=== PATIENT | female | born 1985 | race Caucasian/White ===

== ENCOUNTER 2019-02-26 02:44 | Observation (INO) | payer OTHER ==
[~2019-02-26] VITALS: Ht 165.1 cm; Wt 118.8 kg
[2019-02-26 02:35] VITALS: BP 104/56
[2019-02-26] MEDS ORDERED: MORPHINE SULFATE 4 MG/ML VIAL. IV PRN ×2 (03:00→09:45)
[2019-02-26] MEDS ORDERED: KETOROLAC 30 MG/ML VIAL. IM ONE (09:00)
[2019-02-26 09:02] VITALS: BP 118/77
[2019-02-26] MEDS ORDERED: FAMO40TA57 PO (09:28)
[2019-02-26] MEDS ORDERED: ESCITALOPRAM OX10 MG PO (09:28)
[2019-02-26] MEDS: IV RINGERS,LACTATED 1000ML 1,000 ML IV SCH ×4 (09:40→22:29)
[2019-02-26] MEDS ORDERED: LIDOCAINE 1% PF 2 ML VIAL. ID PRN (09:45)
[2019-02-26] MEDS ORDERED: HYDROmorphone 2 MG/ML VIAL IV PRN (09:45)
[2019-02-26] MEDS ORDERED: PROCHLORPERAZINE 10 MG/2 ML VIAL. IV PRN ×3 (09:45→20:30)
[2019-02-26] MEDS ORDERED: MORPHINE SULFATE 2 MG/ML VIAL. IV PRN ×2 (09:45→20:30)
[2019-02-26] MEDS ORDERED: fentaNYL PF VIAL 100 MCG/2 ML VIAL IV PRN ×2 (09:45)
[2019-02-26] MEDS ORDERED: IV RINGERS,LACTATED 1000ML 1,000 ML IV SCH (10:00)
--- NOTE | 2019-02-26 10:33 | NUR ---
new bag already hanging so no need for this bag at this time
--- NOTE | 2019-02-26 10:33 | PDOC2 ---
CONSULT Date of Consult Date of Consult DATE: 02/26/19 TIME: 10:29 Reason for Consult Reason for Consult: ovarian cyst Referring Physician Referring Physician: Dr. Gonzales Identification/Chief Complaint Chief Complaint abd pain Source Source: Chart review, Patient History of Present Illness Reason for Visit: 33 y/o presented to [place] ED with c/o abd pain for past 2 days that continued to worsen. She was found to have Right complex ovarian cyst. She was then transferred to [facility]. The pelvic sono was reviewed with patient. Past Medical History Cardiovascular: No pertinent hx Pulmonary: No pertinent hx GI: No pertinent hx Heme/Onc: No pertinent hx Hepatobiliary: No pertinent hx Infectious disease: No pertinent hx Past Surgical History Past Surgical History: Cholecystectomy, Other (Gastric bypass and ovarian cystectomy) Current Medications Current Medications Current Medications Ringer's Solution 1,000 ml @ 150 mls/hr Q6H40M IV ; Start 02/26/19 at 03:00 Morphine Sulfate (Morphine Sulfate) 6 mg PRN Q2HR PRN IV PAIN; Start 02/26/19 at 03:00; Stop 02/26/19 at 09:50; Status DC Ketorolac Tromethamine (Toradol 30mg Vial) 30 mg 1X ONCE IM ; Start 02/26/19 at 09:00; Stop 02/26/19 at 09:01; Status DC Fentanyl Citrate (Fentanyl 2ml Vial) 25 mcg PRN Q5MIN PRN IV MILD PAIN 1-3; Start 02/26/19 at 09:45; Stop 02/26/19 at 19:00 Fentanyl Citrate (Fentanyl 2ml Vial) 50 mcg PRN Q5MIN PRN IV MODERATE TO SEVERE PAIN; Start 02/26/19 at 09:45; Stop 02/26/19 at 19:00 Morphine Sulfate (Morphine Sulfate) 1 mg PRN Q10MIN PRN IV SEVERE PAIN 7-10; Start 02/26/19 at 09:45; Stop 02/26/19 at 19:00 Ringer's Solution 1,000 ml @ 30 mls/hr Q24H IV ; Start 02/26/19 at 10:00; Stop 02/26/19 at 19:00 Lidocaine HCl (Xylocaine-Mpf 1% 2ml Vial) 2 ml PRN 1X PRN ID PRIOR TO IV START; Start 02/26/19 at 09:45; Stop 02/26/19 at 19:00 Hydromorphone HCl (Dilaudid) 0.5 mg PRN Q10MIN PRN IV SEV PAIN, Second choice; Start 02/26/19 at 09:45; Stop 02/26/19 at 19:00 Prochlorperazine Edisylate (Compazine) 5 mg PACU PRN PRN IV NAUSEA, MRX1; Start 02/26/19 at 09:45; Stop 02/26/19 at 19:00 Morphine Sulfate (Morphine Sulfate) 4 mg PRN Q4HRS PRN IV PAIN; Start 02/26/19 at 09:45 Active Scripts Active Reported Pepcid (Famotidine) 40 Mg Tablet 40 Mg PO BID Escitalopram Oxalate 10 Mg Tablet 1 Tab PO DAILY Allergies Allergies: Coded Allergies: Sulfa (Sulfonamide Antibiotics) (Verified Allergy, Intermediate, 02/26/19) ibuprofen (Verified Allergy, Mild, 02/26/19) yellow dye (Verified Allergy, Mild, 02/26/19) ROS General: YES: Fatigue PSYCHOLOGICAL ROS: YES: Anxiety Eyes: No Blurry vision, No Decreased vision, No Double vision, No Dry eyes, No Excessive tearing, No Eye Pain, No Itchy Eyes, No Loss of vision, No Ph otophobia, No Scotomata, No Uses contacts, No Uses glasses, No Other HEENT: No: Heacaches, Visual Changes, Hearing change, Nasal congestion, Nasal discharge, Oral lesions, Sinus pain, Sore Throat, Epistaxis, Sneezing, Snoring, Tinnitus, Vertigo, Vocal changes, Other ALLERGY AND IMMUNOLOGY: No: Hives, Insect Bite Sensitivity, Itchy/Watery Eyes, Nasal Congestion, Post Nasal Drip, Seasonal Allergies, Other Hematological and Lymphatic: No: Bleeding Problems, Blood Clots, Blood Transfusions, Brusing, Night Sweats, Pallor, Swollen Lymph Nodes, Other ENDOCRINE: No: Breast Changes, Galactorrhea, Hair Pattern Changes, Hot Flashes, Malaise/lethargy, Mood Swings, Palpitations, Polydipsia/polyuria, Skin Changes, Temperature Intolerance, Unexpected Weight Changes, Other Breast: No New/Changing Breast Lumps, No Nipple changes, No Nipple discharge, No Other Respiratory: No: Cough, Hemoptysis, Orthopnea, Pleuritic Pain, Shortness of breath, SOB with excertion, Sputum Changes, Stridor, Tachypnea, Wheezing, Other Cardiovascular: No Chest Pain, No Palpitations, No Orthopnea, No Paroxysmal Noc. Dyspnea, No Edema, No Lt Headedness, No Other Gastrointestinal: Yes Abdominal Pain Genitourinary: No Dysuria, No Frequency, No Incontinence, No Hematuria, No Retention, No Discharge, No Urgency, No Pain, No Flank Pain, No Other, No , No , No , No , No , No , No Musculoskeletal: No Gait Disturbance, No Joint Pain, No Joint Stiffness, No Joint Swelling, No Muscle Pain, No Muscular Weakness, No Pain In:, No Swelling In:, No Other Physical Exam General: Alert, Oriented X3, Cooperative HEENT: Atraumatic Lungs: Clear to auscultation Heart: Regular rate Abdomen: Normal bowel sounds, Soft, Other (RLQ tenderness to palpation) Psych/Mental Status: Mental status NL Vitals VITALS Vital Signs Date Time Temp Pulse Resp B/P (MAP) Pulse Ox O2 Delivery O2 Flow Rate FiO2 02/26/19 09:02 97.7 64 14 118/77 (91) 99 Room Air 97.7 Assessment/Plan Assessment/Plan A: ROV complex cyst P: Plan for LPSC RSO today. MAXI BRAR Jr, MD Feb 26, 2019 10:33
[2019-02-26] MEDS ORDERED: KETOROLAC 30 MG/ML VIAL. IVP ONE (10:45)
--- NOTE | 2019-02-26 10:49 | HP ---
ADMIT DATE: 02/26/2019 HISTORY OF PRESENT ILLNESS: The patient is a 33-year-old female patient, who presented to the Emergency Room of [facility] with severe back pain that started since last Tuesday. Pain radiates down to the right flank area, associated with nausea, vomiting and also, according to the patient, hematemesis. She rates this pain as 10/10. The patient denied any trauma, denied any history of immunosuppression. She had had gastric bypass surgery in October of this year and has had no complications. She was recently treated with a course of Cipro for UTI; but denies any bad food. She stated her pain was so bad that she was unable to sleep. She normally follows with Dr. Alexander and has multiple other medical problems including bipolar disorder, anxiety and panic attack. She was extensively evaluated in the Emergency Room of [facility]. Her lab work was unremarkable. Her toxic screen was positive for benzodiazepine and urinalysis was mostly unremarkable. Her urine test was negative. She apparently had had a CT scan of the abdomen and pelvis, which showed that the patient has right ovarian cyst with septation. A followup would be necessary to exclude a cystic tumor versus a complicated by hemorrhagic cyst. She has an intrauterine contraceptive device in normal position and normal left ovary. She did have no renal or ureteral calculi, no evidence of obstructive uropathy; and therefore, the patient was transferred to [facility] to consult the utility sales representative for further evaluation and treatment. While in the Emergency Room, her urinalysis showed that she had also leukocytosis, moderate amount of bacteria and was started on IV Rocephin. PAST MEDICAL HISTORY: Significant for morbid obesity for which she underwent a gastric bypass surgery, impaired glucose tolerance and hypothyroidism that apparently has resolved; she also is known to have bipolar disorder, anxiety, depression and panic attack. PAST SURGICAL HISTORY: Significant for gastric bypass surgery, she had also cholecystectomy and ovarian cyst removal. MEDICATIONS: She is on Abilify, Lexapro and multivitamin patch. FAMILY HISTORY: She has 3 brothers and 7 sisters. One of her sisters has ovarian cancer. Her mother is still alive at age of 77 and has diabetes, hypertension, heart disease and pulmonary hypertension as well as SLE. Her father is still alive and has diverticulitis. SOCIAL HISTORY: She lives with her girlfriend. She quit smoking a year ago. She drinks alcohol occasionally. She has a 3-year-old and a 7-year-old stepson. REVIEW OF SYSTEMS: As per history of present illness. PHYSICAL EXAMINATION: GENERAL: On arrival to the Emergency Room, the patient looked well and was clearly in no apparent respiratory distress. No pallor, jaundice, cyanosis or thyromegaly. No jugular venous distention. No lower limb edema. VITAL SIGNS: Her heart rate was 73, blood pressure was 120/62, temperature was 98, respiratory rate was 18 and oxygen saturation was 99% on room air. HEAD, EYES, EARS, NOSE AND THROAT: Normocephalic, atraumatic. NECK: Supple. HEART: Showed normal first and second heart sounds. No gallop, rub or murmur. CHEST: Clear to auscultation. No crepitation or rhonchi. ABDOMEN: Distended, soft, nontender. NEUROLOGICAL: She was awake, alert, responding appropriately. All cranial nerves intact. EXTREMITIES: She moves extremities without difficulty. LABORATORY DATA: Her lab work this morning showed a white cell count of 7500, hemoglobin 13, hematocrit 39, MCV 94 and platelet count 214,000. Her chemistry showed a serum sodium of 143, potassium 3.4, chloride 107, bicarbonate 26, anion gap of 10, BUN 17, creatinine 0.7, estimated GFR was 97 mL per minute, her glucose 115, calcium was 8.9. Total bilirubin, AST, ALT, alkaline phosphatase were normal. Total protein was 7. Albumin was 3.4. Her serum lipase was 64. Her prothrombin time, INR and APTT are normal. Urinalysis showed the urine was alma delia, cloudy with a pH of 5.5, specific gravity more than 1.030, urine protein 30 mg/dL, the urine was negative for glucose, there was trace of ketones, large amount of blood, negative for nitrite, trace leukocyte esterase with 11-20 rbc's, 5-10 wbc's, very few bacteria. Her urine test was negative. Her toxic screen was positive for benzodiazepine. Her CT scan of the abdomen and pelvis as well as transabdominal/transvaginal ultrasound showed that she has right ovarian cyst with septation. Followup would be necessary to exclude a cystic tumor versus a complicated hemorrhagic cyst; and therefore, the patient was transferred to this facility to consult the utility sales representative for further evaluation and treatment. I did switch her medication to morphine 4 mg IV every 4 hours and I will check her lab work including TSH and hemoglobin A1c. KELY CARVALHO MD DR: DEIDRE/tanisha JOB#: [id number] / [id number]
[2019-02-26 12:30] VITALS: BP 119/77
[2019-02-26] MEDS ORDERED: SURGICEL HEMOSTAT 4X8 EACH. ONE (16:39)
[2019-02-26] MEDS ORDERED: BUPIVACAINE-EPI 0.25%-1:200000 MPF 30 ML VIAL. INJ ONE (17:00)
[2019-02-26 17:27] VITALS: BP 112/70
--- NOTE | 2019-02-26 17:36 | NUR ---
no need for this bag at this time
[2019-02-26] MEDS ORDERED: PROPOFOL 20 ML IV ONE (17:51)
[2019-02-26] MEDS ORDERED: fentaNYL PF VIAL 100 MCG/2 ML VIAL ONE ×2 (17:51→20:12)
[2019-02-26] MEDS ORDERED: LIDOCAINE 2% PF 5 ML VIAL. ONE (17:51)
[2019-02-26] MEDS ORDERED: DEXAMETHASONE SOD PHOS 4 MG/ML VIAL ONE (17:51)
[2019-02-26] MEDS ORDERED: ROCURONIUM 50 MG/5 ML VIAL. ONE (17:51)
[2019-02-26] MEDS ORDERED: ONDANSETRON PF 4 MG/2 ML VIAL. ONE (17:51)
[2019-02-26] MEDS ORDERED: NEOSTIGMINE METHYLSULFATE 5 MG/5 ML SYRINGE. ONE (19:35)
[2019-02-26] MEDS ORDERED: GLYCOPYRROLATE 1 MG/5 ML VIAL. ONE (19:35)
[2019-02-26] MEDS ORDERED: SEVOFLURANE 61 TO 120 MINUTES. IH ONE (19:41)
--- NOTE | 2019-02-26 19:46 | PDOC ---
BRIEF OPERATIVE NOTE Date: Feb 26, 2019 Pre-Op Diagnosis ROV complex cyst Post-Op Diagnosis Same Procedure Performed [facility] Surgeon Dr. Trujillo Anesthesia Type: General Blood Loss 10 ml Specimens Obtained Right fallopian tube and Right ovary Findings nml size uterus, nml fallopian tubes yuriy., nml SERENE; ROV 5 cm complex cyst Complications none Operative Note see dictation MAXI TRUJILLO Jr, MD Feb 26, 2019 19:46
[2019-02-26] MEDS ORDERED: 0.9 % SODIUM CHLORIDE 10 ML DISP.SYRIN. IV PRN (20:00)
[2019-02-26] MEDS ORDERED: diphenhydrAMINE HCL 25 MG CAPSULE PO PRN (20:00)
[2019-02-26] MEDS ORDERED: SIMETHICONE 80 MG TAB.CHEW PO PRN (20:00)
[2019-02-26] MEDS ORDERED: CALCIUM CARBONATE 500 MG TAB.CHEW PO PRN (20:00)
[2019-02-26] MEDS ORDERED: diphenhydrAMINE 50 MG/ML VIAL IV PRN (20:00)
[2019-02-26] MEDS ORDERED: DEXTROSE 50% 25 GM / 50ML DISP.SYRIN. IV PRN (20:00)
[2019-02-26] MEDS ORDERED: KETOROLAC 30 MG/ML VIAL. IV PRN (20:00)
[2019-02-26] MEDS ORDERED: oxyCODONE/APAP 5/325 1 TAB TABLET PO PRN (20:00)
[2019-02-26] MEDS ORDERED: ZOLPIDEM 5 MG TABLET. PO PRN (20:00)
--- NOTE | 2019-02-26 20:28 | OP ---
DATE OF SURGERY: 02/26/2019 PREOPERATIVE DIAGNOSIS: Right ovarian complex cyst. POSTOPERATIVE DIAGNOSES: Right ovarian complex cyst. PROCEDURE: Laparoscopic RSO. SURGEON: Leandro Trujillo M.D. ANESTHESIA: GETA. ESTIMATED BLOOD LOSS: 10 mL. COMPLICATIONS: None. FINDINGS: Normal-sized uterus, normal fallopian tubes bilaterally, normal left ovary, right ovarian complex cyst about 5 cm size. SUMMARY: A 33-year-old female who had presented to Emergency Department with increasingly worsening pelvic pain. The patient was counseled on the risks, benefits, and expectations of laparoscopic RSO and voiced a clear understanding to proceed. DESCRIPTION OF PROCEDURE: The patient was taken to surgery suite and placed in dorsal lithotomy position, was prepped with Betadine solution for vaginal prep and ChloraPrep for abdominal prep. After adequate anesthesia, bivalve speculum was placed vaginally. Anterior lip of the cervix was grasped with single tooth tenaculum. The uterine acorn manipulator was then placed. The bivalve speculum was removed. Attention was now placed on the abdomen. Small transverse skin incision was made just below the umbilicus with a scalpel. The Veress needle was then placed through the infraumbilical incision site. The abdomen was allowed to insufflate up to 1.5 L CO2 gas. The Veress needle was then removed, 5-mm trocar was placed. The scope was positioned. Uterus appeared normal size, left fallopian tube and ovary appeared normal. Right fallopian tube appeared normal. The right ovary demonstrated 5-cm complex cyst that had both fluid and solid components. Additional incision was made in the left upper quadrant, in which a 5-mm trocar was placed and another incision was made in the left lower quadrant, in which a 12-mm trocar was placed. With aid of graspers and EnSeal device, the right infundibulopelvic ligament was coagulated and dissected. The right utero-ovarian pedicle was coagulated and dissected. The remainder of the right fallopian tube was dissected away from the pelvic sidewall using the EnSeal device. The ovarian cyst was then incised with the EnSeal device and suctioned with a suction digital cartographer. The right fallopian tube and ovary were then removed in the Endobag. The pedicle was hemostatic. Suction irrigation was utilized to verify good hemostasis. A small amount of normal saline was left in the posterior cul-de-sac. Trocars were then removed under direct visualization. The abdomen was allowed to deflate as much as possible along with mechanical manipulation. The 12-mm trocar site was reapproximated in the fascial layer using 2-0 Vicryl suture in a [id number] manner. The three skin incisions were reapproximated at the skin level using 4-0 Vicryl suture in subcuticular manner. A 0.25% Marcaine with epinephrine was injected at each incision site. Uterine acorn manipulator and single tooth tenaculum were removed. The patient tolerated the procedure well and was taken to recovery room in stable condition. Sponge and needle count correct x 3. LEANDRO TRUJILLO MD DR: RACHEL/tanisha JOB#: [id number] / [id number]
[2019-02-26] MEDS: fentaNYL PF VIAL 100 MCG/2 ML VIAL IV PRN ×2 (20:29→20:44)
[2019-02-26 20:55] VITALS: BP 114/66
[2019-02-26 21:55] VITALS: BP 118/74
[2019-02-26] MEDS: ONDANSETRON PF 4 MG/2 ML VIAL. IV PRN (22:27)
[2019-02-26] MEDS: GABAPENTIN 300 MG CAPSULE. PO SCH (22:28)
[2019-02-27 04:08] VITALS: BP 106/55
[2019-02-27 04:41] LABS: BASO % 0 % (0-3); EOS % 0 % (0-3); HEMATOCRIT 37.1 % (36.0-47.0); HEMOGLOBIN 12.4 g/dL (12.0-15.5); LYMPH # 0.8 x10^3/uL (1.0-4.8); LYMPH % 16 % (24-48); MEAN CORPUSCULAR HEMOGLOBIN 31 pg (25-35); MEAN CORPUSCULAR HGB CONC 33 g/dL (31-37); MEAN CORPUSCULAR VOLUME 94 fL (79-100); MONO # 0.2 x10^3/uL (0.0-1.1); MONO % 4 % (0-9); NEUT # 4.1 x10^3/uL (1.8-7.7); NEUT % 80 % (31-73); PLATELET COUNT 290 x10^3/uL (140-400); RED BLOOD COUNT 3.96 x10^6/uL (3.50-5.40); RED CELL DISTRIBUTION WIDTH 15.9 % (11.5-14.5); WHITE BLOOD COUNT 5.2 x10^3/uL (4.0-11.0)
[2019-02-27 05:12] LABS: ALBUMIN/GLOBULIN RATIO 0.9 (1.0-1.7); CALCIUM 8.6 mg/dL (8.5-10.1); CREATININE 0.7 mg/dL (0.6-1.0); GFR 97.6; POTASSIUM 4.3 mmol/L (3.5-5.1); TOTAL BILIRUBIN 0.2 mg/dL (0.2-1.0); TOTAL PROTEIN 6.3 g/dL (6.4-8.2)
[2019-02-27] MEDS: IV RINGERS,LACTATED 1000ML 1,000 ML IV SCH (05:33)
[2019-02-27] MEDS: GABAPENTIN 300 MG CAPSULE. PO SCH (05:57)
--- NOTE | 2019-02-27 11:38 | PN ---
DATE: 02/27/2019 SUBJECTIVE: The patient was admitted with severe pain for which she was seen originally at [facility] Emergency Room. There she was found to have right ovarian cyst with septation therefore, she was transferred to [facility]. She was seen in consultation by Dr. Trujillo and underwent right laparoscopic right salpingo-oophorectomy. Her uterus size was normal with normal fallopian tubes bilaterally. Normal left ovary, right ovarian complex cyst about 5 cm in size. When I saw her this morning, she looked well. Denied any complaint. Her liver enzymes were slightly elevated. Her thyroid function was normal. The TSH was 0.630. OBJECTIVE: GENERAL: On examining her, she looked well and was clearly in no apparent respiratory distress. No pallor, jaundice, cyanosis or thyromegaly. No jugular venous distension. No limb edema. VITAL SIGNS: Her heart rate was 72, blood pressure was 106/55, temperature was 98.1, respiratory rate 12 and oxygen saturation was 97%. The rest of clinical exam is stable. PLAN: My plan is to obviously continue with current medication and pain management. I will add hepatitis panel and to exclude the possibility of hepatitis A, B or C and if they are all negative, the patient can be discharged home. KELY CARVALHO MD DR: DEIDRE/tanisha JOB#: [id number] / [id number]
[2019-02-27 12:00] VITALS: BP 120/75
[2019-02-27] MEDS: ONDANSETRON PF 4 MG/2 ML VIAL. IV PRN (12:10)
--- NOTE | 2019-02-27 12:34 | PDOC ---
SURGICAL PROGRESS NOTE Subjective Pt. feeling well. Pain controlled. Vital Signs Vital Signs Date Time Temp Pulse Resp B/P (MAP) Pulse Ox O2 Delivery O2 Flow Rate FiO2 02/27/19 10:55 Room Air 02/27/19 04:08 98.1 72 12 106/55 (72) 97 98.1 02/26/19 20:09 10 I&O Intake and Output 02/27/19 07:00 Intake Total 1850 ml Output Total 1085 ml Balance 765 ml Intake Oral 300 ml IV Total 1550 ml Output Urine Total 1075 ml Estimated Blood Loss 10 ml # Voids 1 General: Alert, Oriented X3, Cooperative HEENT: Atraumatic Lungs: Clear to auscultation Heart: Regular rate Abdomen: Normal bowel sounds, Soft, No masses Psych/Mental Status: Mental status NL Labs Laboratory Tests Test 02/27/19 03:45 White Blood Count 5.2 x10^3/uL (4.0-11.0) Red Blood Count 3.96 x10^6/uL (3.50-5.40) Hemoglobin 12.4 g/dL (12.0-15.5) Hematocrit 37.1 % (36.0-47.0) Mean Corpuscular Volume 94 fL (79-100) Mean Corpuscular Hemoglobin 31 pg (25-35) Mean Corpuscular Hemoglobin Concent 33 g/dL (31-37) Red Cell Distribution Width 15.9 % (11.5-14.5) Platelet Count 290 x10^3/uL (140-400) Neutrophils (%) (Auto) 80 % (31-73) Lymphocytes (%) (Auto) 16 % (24-48) Monocytes (%) (Auto) 4 % (0-9) Eosinophils (%) (Auto) 0 % (0-3) Basophils (%) (Auto) 0 % (0-3) Neutrophils # (Auto) 4.1 x10^3/uL (1.8-7.7) Lymphocytes # (Auto) 0.8 x10^3/uL (1.0-4.8) Monocytes # (Auto) 0.2 x10^3/uL (0.0-1.1) Eosinophils # (Auto) 0.0 x10^3/uL (0.0-0.7) Basophils # (Auto) 0.0 x10^3/uL (0.0-0.2) Sodium Level 143 mmol/L (136-145) Potassium Level 4.3 mmol/L (3.5-5.1) Chloride Level 109 mmol/L (98-107) Carbon Dioxide Level 25 mmol/L (21-32) Anion Gap 9 (6-14) Blood Urea Nitrogen 7 mg/dL (7-20) Creatinine 0.7 mg/dL (0.6-1.0) Estimated GFR (Cockcroft-Gault) 97.6 BUN/Creatinine Ratio 10 (6-20) Glucose Level 115 mg/dL (70-99) Calcium Level 8.6 mg/dL (8.5-10.1) Total Bilirubin 0.2 mg/dL (0.2-1.0) Aspartate Amino Transf (AST/SGOT) 41 U/L (15-37) Alanine Aminotransferase (ALT/SGPT) 65 U/L (14-59) Alkaline Phosphatase 128 U/L (46-116) Total Protein 6.3 g/dL (6.4-8.2) Albumin 3.0 g/dL (3.4-5.0) Albumin/Globulin Ratio 0.9 (1.0-1.7) Thyroid Stimulating Hormone (TSH) 0.630 uIU/mL (0.358-3.74) Hepatitis A IgM Antibody Nonreactive (Nonreactive) Hepatitis B Surface Antigen Nonreactive (Nonreactive) Hepatitis B Core IgM Antibody Nonreactive (Nonreactive) Hepatitis C IgG Antibody Nonreactive (Nonreactive) Laboratory Tests Test 02/27/19 03:45 White Blood Count 5.2 x10^3/uL (4.0-11.0) Red Blood Count 3.96 x10^6/uL (3.50-5.40) Hemoglobin 12.4 g/dL (12.0-15.5) Hematocrit 37.1 % (36.0-47.0) Mean Corpuscular Volume 94 fL (79-100) Mean Corpuscular Hemoglobin 31 pg (25-35) Mean Corpuscular Hemoglobin Concent 33 g/dL (31-37) Red Cell Distribution Width 15.9 % (11.5-14.5) Platelet Count 290 x10^3/uL (140-400) Neutrophils (%) (Auto) 80 % (31-73) Lymphocytes (%) (Auto) 16 % (24-48) Monocytes (%) (Auto) 4 % (0-9) Eosinophils (%) (Auto) 0 % (0-3) Basophils (%) (Auto) 0 % (0-3) Neutrophils # (Auto) 4.1 x10^3/uL (1.8-7.7) Lymphocytes # (Auto) 0.8 x10^3/uL (1.0-4.8) Monocytes # (Auto) 0.2 x10^3/uL (0.0-1.1) Eosinophils # (Auto) 0.0 x10^3/uL (0.0-0.7) Basophils # (Auto) 0.0 x10^3/uL (0.0-0.2) Sodium Level 143 mmol/L (136-145) Potassium Level 4.3 mmol/L (3.5-5.1) Chloride Level 109 mmol/L (98-107) Carbon Dioxide Level 25 mmol/L (21-32) Anion Gap 9 (6-14) Blood Urea Nitrogen 7 mg/dL (7-20) Creatinine 0.7 mg/dL (0.6-1.0) Estimated GFR (Cockcroft-Gault) 97.6 BUN/Creatinine Ratio 10 (6-20) Glucose Level 115 mg/dL (70-99) Calcium Level 8.6 mg/dL (8.5-10.1) Total Bilirubin 0.2 mg/dL (0.2-1.0) Aspartate Amino Transf (AST/SGOT) 41 U/L (15-37) Alanine Aminotransferase (ALT/SGPT) 65 U/L (14-59) Alkaline Phosphatase 128 U/L (46-116) Total Protein 6.3 g/dL (6.4-8.2) Albumin 3.0 g/dL (3.4-5.0) Albumin/Globulin Ratio 0.9 (1.0-1.7) Thyroid Stimulating Hormone (TSH) 0.630 uIU/mL (0.358-3.74) Hepatitis A IgM Antibody Nonreactive (Nonreactive) Hepatitis B Surface Antigen Nonreactive (Nonreactive) Hepatitis B Core IgM Antibody Nonreactive (Nonreactive) Hepatitis C IgG Antibody Nonreactive (Nonreactive) Problem List Problems Medical Problems: (1) Ovarian cyst, right Status: Acute Assessment/Plan A: POD#1 s/p LPSC RSO P: D/c home. MAXI BRAR Jr, MD Feb 27, 2019 12:34
[2019-02-27] MEDS ORDERED: OXYC1TAB15 PO (12:36)
--- NOTE | 2019-02-27 12:37 | DISCH ---
DISCHARGE INSTRUCTIONS Condition on Discharge Condition on Discharge: Stable Activity After Discharge Activity Instructions for Disc: Activity as tolerated Lifting Instructions after Dis: No heavy lifting Driving Instructions after Dis: Do not drive today Diet after Discharge Diet after Discharge: Regular Contacting the DRStevie after DC Call your doctor for: Concerns you may have Follow-Up Follow up with: Dr. Trujillo in 1 wk MAXI TRUJILLO Jr, MD Feb 27, 2019 12:37
--- NOTE | 2019-02-27 14:20 | NUR ---
Discharge Discharge and incisional care instructions given to patient at this time, no questions or concerns noted. To follow up with DR Trujillo in 1 week. Patient wanting to rest, to nap then to be discharged. Will continue to monitor.
[2019-02-27 23:07] LABS: HEMOGLOBIN A1C 5.2 % (4.8-5.6)
--- NOTE | 2019-02-28 23:06 | PATHOLOGY ---
[facility] Accession Number: [id number] . 01 Material submitted: . ovary - RIGHT OVARY AND FALLOPIAN TUBE. Modifiers: right . 01 Clinical history: . Right ovarian cortex cyst. . 02 Diagnosis: "Right ovary and right fallopian tube", right salpingo-oophorectomy: - Ovary, right, with large hemorrhagic corpus luteal cyst, small follicular cyst, resolving corpus lutea and corpora albicantia. - Fallopian tube, right, with paratubal cysts. (CLW:sayra; 02/28/2019) MBR 02/28/2019 1614 Local . 02 Electronically signed: . Caitlin Duran MD, Pathologist NPI- [id number] . 01 Gross description: . Received in formalin labeled "Violet Tran, right ovary and right fallopian tube" is a salpingo-oophorectomy specimen consisting of a previously opened yusuf-white ovary weighing 10 g and measuring 4.0 x 3.0 x 2.3 cm, and a detached pink-yusuf fimbriated fallopian tube measuring 7.2 cm in length and 0.6 cm in diameter. The ovary displays a full-thickness defect measuring 1.7 cm. Upon sectioning, the cut surface displays a thin-walled simple cyst measuring 2.2 cm in greatest dimension. No solid areas or papillary specimens is identified within the cyst. The uninvolved ovarian parenchyma is yusuf-white and unremarkable. The fallopian tube has a smooth external surface with multiple paratubal cysts identified, ranging from 0.1-0.2 cm. Upon sectioning, the fallopian tube displays a pinpoint lumen. Loss Prevention Lead sections of the specimen are submitted as follows: A1-A3 petroleum products sales representative ovary A4-A5 petroleum products sales representative fallopian tube and entire fimbriated end (SK; 02/27/2019) SY/[facility] 02/27/2019 1720 Local . 02 Pathologist provided ICD-10: N83.11, N83.01, N83.8 . 02 CPT . 098267 Specimen Comment: A courtesy copy of this report has been sent to [phone], [phone] Specimen Comment: [id number], Specimen Comment: Report sent to ,DR CARVALHO / DR MARTINES Performed at: 01 [facility] [address], [place] [id number] MD Arnoldo Chung MD Phone: [phone] Performed at: 02 [facility] [address] [place], [place] [id number] MD Jeffrey Carrera MD Phone: [phone]
== END 2019-02-27 14:35 | disposition home or self-care (01) ==
LOC: INTOOBSV 02:44 → 3 NORTH 02:44
PROVIDERS: ADMIT Internal Medicine; ATTEND Internal Medicine
DX: N83.291 Other ovarian cyst, right side (principal); E03.9 Hypothyroidism, unspecified; F31.9 Bipolar disorder, unspecified; F41.0 Panic disorder [episodic paroxysmal anxiety]; Z88.2 Allergy status to sulfonamides; Z88.6 Allergy status to analgesic agent
CPT/HCPCS: 36415; 58661; 80053; 83036; 84443; 85025; 86705; 86709; 86803; 87340; 88305; 96374; 96375; 96376; A7015; G0378; G0379; J0696; J0780; J1100; J1885; J2001; J2270; J2405; J2704; J2710; J3010; J3490; J7030; J7120